=== PATIENT | female | born 1955 | race Caucasian/White ===

== ENCOUNTER 2017-05-01 06:39 | Day surgery (SDC) | payer OTHER ==
[2017-04-22 10:33] VITALS: BMI 38.4
[2017-05-01] MEDS ORDERED: MIDAZOLAM HCL 2 MG/2 ML SINGLE DOSE VIAL ONE (07:58)
--- NOTE | 2017-05-01 08:13 | HP ---
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 Cardiovascular: Yes: Hyperlipdemia Pulmonary: Yes: COPD Reproductive: Yes: Other (MENOPAUSE 2006) ...: 3 ...Para: 3 - Past Surgical History Hx Myomectomy: No Hx Transabdominal Cerclage: No Additional Surgical History: UMBLICAL ,& ABDOMINAL HERNIA REPAIR - Smoking History Smoking history: Never smoked Have you smoked in the past 12 months: No Aproximately how many cigarettes per day: 10 - Alcohol/Substance Use Hx Alcohol Use: No History of Substance Use: reports: None - Social History History of Recent Travel: No Home Medications - Allergies Allergies/Adverse Reactions: Allergies Allergy/AdvReac Type Severity Reaction Status Date / Time banana Allergy Severe Vomiting Verified 04/22/17 10:34 - Home Medications Home Medications: Ambulatory Orders Aspirin [ASA -] 81 mg PO DAILY 04/22/17 Calcium Carbonate [Calcium] 500 mg PO DAILY 04/22/17 Acetaminophen [Tylenol .Regular Strength -] 650 mg PO Q4H PRN tablet 05/01/17 Ibuprofen [Motrin -] 400 mg PO Q4H PRN tablet 05/01/17 Metronidazole 0.75% Vag. Gel [Metrogel 0.75% *Vaginal Gel* -] 1 applic VG HS #1 tube 05/01/17 Physical Exam - Maternity Vital Signs: Vital Signs Temperature 98.4 F 05/01/17 07:06 Pulse Rate 68 05/01/17 07:06 Respiratory Rate 20 05/01/17 07:06 Blood Pressure 148/72 05/01/17 07:06 O2 Sat by Pulse Oximetry (%) 97 05/01/17 07:07 Constitutional: Yes: Obese HENT: Yes: Normocephalic Neck: Yes: WNL Cardiovascular: Yes: WNL, Regular Rate and Rhythm Lungs: Clear to auscultation Breast(s): Yes: WNL - Abdominal Exam/OB Fundal Height: 4 (ut ns, mobile, firm . nontender .Adnexa parent aide, nt . 2nd degree cystocele noted,lax perineum, vagina normal ) - Vaginal Exam/OB Vaginal Bleediing: No Dilatation (cm): CLOSE - Physical Exam Musculoskeletal: Yes: WNL Extremities: Yes: WNL. No: Calf Tenderness Edema: No Integumentary: Yes: Incision (ABDOMINOPLAST SCAR , HERNIA REPAIR SCAR) Deep Tendon Reflex Grade: Normal +2 Psychiatric: Yes: WNL, Alert, Oriented - Labs Lab Results: Laboratory Tests 10/09/15 04/22/17 04/22/17 07:45 09:42 09:42 WBC 5.8 RBC 4.97 Hgb 13.9 Hct 43.0 Plt Count 239 Neutrophils % 49.9 Lymphocytes % 37.2 Monocytes % 9.0 PT with INR 11.50 INR 1.02 Sodium Potassium Chloride Carbon Dioxide BUN Creatinine Random Glucose AST ALT Urine Protein Urine Ketones Urine RBC 1 Urine WBC 4 Urine HCG, Qual 04/22/17 04/22/17 09:42 09:42 WBC RBC Hgb Hct Plt Count Neutrophils % Lymphocytes % Monocytes % PT with INR INR Sodium 140 Potassium 4.2 Chloride 105 Carbon Dioxide 29 BUN 12 Creatinine 0.8 Random Glucose 87 AST 13 L D ALT 25 Urine Protein Negative Urine Ketones Negative Urine RBC Urine WBC Urine HCG, Qual Negative Problem List - Problems (1) LGSIL (low grade squamous intraepithelial dysplasia) Code(s): PMB3480 - (2) High risk HPV infection Code(s): B97.7 - PAPILLOMAVIRUS THE CAUSE OF DISEASES CLASSIFIED ELSEWHERE (3) Post-menopause Code(s): Z78.0 - ASYMPTOMATIC MENOPAUSAL STATE Assessment/Plan PERSISITENT LGSIL ON ECC IN POSTMENOPAUSAL WOMAN PLAN COLD KNIFE CONE BX
[2017-05-01] MEDS ORDERED: PROPOFOL 20 ML ONE (08:15)
[2017-05-01] MEDS ORDERED: KETOROLAC TROMETHAMINE 30 MG/1 ML VIAL ONE (08:15)
[2017-05-01] MEDS ORDERED: DEXAMETHASONE SOD PHOSPHATE 4 MG/1 ML VIAL ONE (08:15)
[2017-05-01] MEDS ORDERED: metroNIDAZOLE 0.75% VAGINAL GEL 70 GM TUBE ONE (08:54)
[2017-05-01] MEDS ORDERED: oxyCODONE HCL 5 MG TABLET PO PRN (09:06)
[2017-05-01] MEDS ORDERED: PROMETHAZINE HCL 25 MG/1 ML VIAL IVPUSH PRN (09:06)
[2017-05-01] MEDS ORDERED: ONDANSETRON 4 MG/2 ML VIAL IVPUSH PRN (09:06)
[2017-05-01] MEDS ORDERED: DESFLURANE GAS 240 ML BOTTLE IH ONE (09:08)
[2017-05-01] MEDS ORDERED: IBUPROFEN 400 MG TABLET (FP) PO PRN (09:09)
[2017-05-01] MEDS ORDERED: ACETAMINOPHEN 325 MG TABLET (FP) PO PRN (09:09)
[2017-05-01] MEDS ORDERED: LACTATED RINGERS SOLUTION 1,000 ML IV SCH (09:15)
[2017-05-01 10:15] VITALS: TEMP 97.9
[2017-05-01 11:18] VITALS: BP 124/62; PULSE 60
--- NOTE | 2017-05-01 12:46 | OP ---
Operative Note - Note: Operative Date: 05/01/17 Pre-Operative Diagnosis: postmenopause , persistent LGSIL Operation: cold knife cone biopsy Findings: ut av ns mobile cx post no descent moderate cystocele noted local anesthesia infiltrated at 5. 7"clock & 11 & 2o'clock position cone of cx dissected hemostasis achieved Surgeon: Enid Pro Die Maker Stamping: Urszula Browne Anesthesiologist/GRAPHICS COORDINATOR: Mejia Rader Anesthesia: Local, Fractional Specimens Removed: cervical cone Estimated Blood Loss (mls): 10 (less than 10 ml ) Drains, Volume Out (mls): 50 (bladder cathetrized ) Operative Report Dictated: Yes
--- NOTE | 2017-05-02 12:56 | OP ---
DATE OF OPERATION: 05/01/2017 PREOPERATIVE DIAGNOSIS: Persistent low-grade squamous intraepithelial lesion on the cervix, human papilloma virus positive. SURGEON: Enid Pro MD TAG WRITER SURGEON: HIPOLITO Christianson ANESTHESIOLOGIST: Mejia Rader MD ANESTHESIA: Fractional and local anesthesia. FINDINGS: This is a 61-year-old, menopause in 2006, postmenopause, has abnormal Pap smears in 2011, last Pap smear was done on September 05, 2016. Pap was ASCUS with HPV of 16 positive. Colposcopy done April 05, 2017. It was satisfactory, and ECC was positive for low-grade CASEY. So, patient also had a previously ECC positive in 2016, low-grade CASEY. Due to abnormal Pap smears in 2011 and ECC always positive, it was decided to do a cold-knife cone biopsy. Incidentally, the patient is obese. DESCRIPTION OF PROCEDURE: Patient was taken to the operating room table, and IV sedation was given. She was in a lithotomy position. Pubis, perineum, vagina were painted with Betadine, draped in the usual manner. Pelvic examination was done. Uterus was anteverted, normal in size. Cervix was posterior. Adnexa was not palpable. Incidentally there was a moderate cystocele. Lax perineum and vagina. Lax vagina was noted. Then, anterior lip of the cervix was held with a single- tooth tenaculum. Lidocaine 1% was infiltrated at 5 o'clock, 7 o'clock, 11 o'clock, and 2 o'clock positions. Then, stay sutures with a Vicryl 0 suture was taken at 3 o' clock, 9 o'clock, 12 o'clock, and 6 o'clock positions. For achieving the hemostasis, 11 numbered blade was used for the dissection of the cone of ervix. Dilator was placed into the endocervical canal, and cone was dissected,starting at posterior lip of cervix and directing towards the endocervical canal and terminal end was then cut with scissors, and anterior lip was marked with a suture and sent for pathology examination. ECC was done. Then, complete hemostasis was achieved by doing a cauterization of the exposed cervix and outer edge of cut cervix.Metrogyl Gel was inserted, stay sutures were cut short. Patient tolerated the procedure well, and she was transferred to the recovery room in stable condition. Prior to starting the procedure, bladder was catheterized and 50 mL of the urine was removed. Estimated blood loss was less than 10 mL. Janis [id number] MTDD
--- NOTE | 2017-05-02 17:46 | PATH ---
Surgical Pathology Report Patient Name: TARA AVITIA [facility]. Rec. #: [id number] /Age/Gender: 1955 (Age: 61) / F Account: [id number] Location: [facility] SUR[facility]ICAL Taken: 05/01/2017 Received: 05/01/2017 Reported: 05/02/2017 Physicians: Enid Pro M.D. Specimen(s) Received A: ENDOCERVICAL CURETTINGS B: CERVICAL CONE BIOPSY STITCH CARRILLO ARTERIORLY Clinical History LGSIL Abnormal Pap since 2015-LGSIL ASCUS or LGSIL; HPV-16 Positive Colpo Bx 04/07/17; ECC-LGSIL Final Diagnosis A. ENDOCERVICAL CURETTINGS, DILATATION AND CURETTAGE: BENIGN ENDOCERVICAL TISSUE. B. CERVIX, CONE BIOPSY: LOW GRADE SQUAMOUS INTRAEPITHELIAL LESION (LSIL), FOCALLY INVOLVING QUADRANTS 3:00 TO 6:00 AND 9:00-12:00 IN A BACKGROUND OF ACUTE AND CHRONIC CERVICITIS. TRANSFORMATION ZONE IS PRESENT. SURGICAL MARGINS ARE NEGATIVE FOR DYSPLASIA. Electronically Signed Leigha Romero M.D. Gross Description A. Received in formalin labeled "endocervical curettage" is a 1.7 x 1.3 x 0.3 cm aggregate of blood-tinged mucus, possibly containing soft tissue fragments. The formalin is filtered and the specimen is entirely submitted in one cassette. B. Received in formalin labeled "cervical cone biopsy is a 1.8 cm in diameter annular portion of soft tissue, consistent with a cervical cone biopsy. There is a suture present marking the anterior aspect of the specimen, per the surgeon. The suture is presumed 12:00 and the specimen is entirely and sequentially submitted in 4 cassettes as follows: 1-12:00 to 3:00; 2-3:00 to 6:00; 3-6:00 to 9:00; 4-9:00 to 12:00. 05/01/201705/01/2017
== END 2017-05-01 11:55 | disposition home or self-care (01) ==
LOC: JASU-SURG 06:39
PROVIDERS: ATTEND Obstetrics & Gynecology
PROC: 0UDB7ZX Extraction of Endometrium, Via Natural or Artificial Opening, Diagnostic (ICD-10-PCS; 2017-05-01)
PROC: 0UBC7ZX Excision of Cervix, Via Natural or Artificial Opening, Diagnostic (ICD-10-PCS; principal; 2017-05-01 08:00)
DX: R87.612 Low grade squamous intraepithelial lesion on cytologic smear of cervix (LGSIL) (principal); R87.810 Cervical high risk human papillomavirus (HPV) DNA test positive
CPT/HCPCS: 86850; 86900; 86901; 88305-TC; 88307-TC; 94760

== ENCOUNTER 2021-04-28 18:51 | Observation (INO) | payer OTHER ==
[2021-04-28] MEDS ORDERED: LIDOCAINE 5% TOPICAL PATCH TP ONE (19:54)
[2021-04-28] MEDS ORDERED: LIDOCAINE 5% TOPICAL PATCH ONE (20:05)
[2021-04-28 20:59] LABS: BASO % 0.8 % (0-2.0); EOS % 4.4 % (0-4.5); HEMATOCRIT 40.1 % (32.4-45.2); HEMOGLOBIN 13.1 GM/dL (10.7-15.3); LYMPH % 30.6 % (8-40); MCHC 32.6 g/dl (32.0-36.0); MEAN PLT VOLUME 8.2 fl (7.5-11.1); MONO % 9.5 % (3.8-10.2); NEUT % 54.7 % (42.8-82.8); PLATELET COUNT 239 10^3/uL (134-434); RBC 4.66 M/mm3 (3.60-5.2); RDW 14.1 % (11.6-15.6); WHITE BLOOD COUNT 6.5 K/mm3 (4.0-10.0)
[2021-04-28 21:06] LABS: PROTHROMBIN TIME (PATIENT) 11.2 SEC (9.7-13.0)
[2021-04-28 21:09] LABS: ACTIVATED PTT 33.5 SECONDS (25.2-36.5)
[2021-04-28 21:18] LABS: CHLORIDE 108 mmol/L (98-107); SODIUM 142 mmol/L (136-145)
[2021-04-28 21:19] LABS: CALCIUM 8.9 mg/dL (8.5-10.1)
[2021-04-28 21:21] LABS: ALBUMIN 3.2 g/dl (3.4-5.0); ANION GAP 8 MMOL/L (8-16); BLOOD UREA NITROGEN 16.2 mg/dL (7-18); CO2 26 mmol/L (21-32); GLUCOSE,RANDOM 122 mg/dL (74-106)
[2021-04-28 21:24] LABS: CREATININE 0.8 mg/dL (0.55-1.3); SGOT/AST 19 U/L (15-37); SGPT/ALT 40 U/L (13-61)
[2021-04-28 21:25] LABS: BILIRUBIN,TOTAL 0.2 mg/dL (0.2-1); TOT PROT 6.6 g/dl (6.4-8.2)
[2021-04-28 21:27] LABS: ALK PHOS 101 U/L (45-117)
[2021-04-28] MEDS ORDERED: diazePAM CARPU-JECT 10 MG/2 ML DISP.SYRIN IVPUSH ONE (22:20)
[2021-04-28] MEDS ORDERED: diazePAM CARPU-JECT 10 MG/2 ML DISP.SYRIN ONE (22:24)
[2021-04-29] MEDS ORDERED: ASPIRIN 81 MG CHEWABLE TABLETS PO ONE (02:02)
[2021-04-29] MEDS: LIDOCAINE PATCH REMOVAL MC SCH ×2 (02:03→21:16)
[2021-04-29] MEDS ORDERED: ACETAMINOPHEN 325 MG TABLET (FP) PO PRN (02:04)
[2021-04-29] MEDS ORDERED: ASPIRIN 81 MG CHEWABLE TABLETS ONE (02:12)
[2021-04-29] MEDS ORDERED: IBUPROFEN 400 MG TABLET (FP) PO ONE (02:45)
[2021-04-29] MEDS ORDERED: GABAPENTIN 100 MG CAPSULE ONE (02:45)
[2021-04-29] MEDS: IBUPROFEN 400 MG TABLET (FP) PO SCH ×4 (02:59→17:50)
[2021-04-29] MEDS: GABAPENTIN 300 MG CAPSULE PO SCH ×2 (02:59→21:15)
[2021-04-29] MEDS: INSULIN SLIDING SCALE (NOVOLOG) 1 VIAL SQ SCH ×4 (06:12→21:16)
[2021-04-29] MEDS: LIDOCAINE 5% TOPICAL PATCH TP SCH (09:25)
[2021-04-29] MEDS: ENOXAPARIN NA (PORCINE) 40 MG/0.4 ML DISP.SYRIN SQ SCH (09:25)
[2021-04-29] MEDS: NICOTINE 14 MG/24 HOURS TOPICAL PATCH TD SCH (09:26)
[2021-04-29] MEDS: PANTOPRAZOLE 20 MG TABLET PO SCH (09:26)
[2021-04-29] MEDS: ASPIRIN 81 MG CHEWABLE TABLETS PO SCH (09:26)
[2021-04-29 12:10] LABS: HEMATOCRIT 39.1 % (32.4-45.2); MCH 28.8 pg (25.7-33.7); MCHC 33.1 g/dl (32.0-36.0); MEAN PLT VOLUME 8.9 fl (7.5-11.1); PLATELET COUNT 221 10^3/uL (134-434); RBC 4.49 M/mm3 (3.60-5.2); WHITE BLOOD COUNT 5.6 K/mm3 (4.0-10.0)
[2021-04-29 12:19] LABS: BLOOD UREA NITROGEN 12.9 mg/dL (7-18); CALCIUM 8.6 mg/dL (8.5-10.1)
[2021-04-29 12:21] LABS: MAGNESIUM 2.2 mg/dL (1.8-2.4)
[2021-04-29 12:24] LABS: CREATININE 0.8 mg/dL (0.55-1.3)
[2021-04-29 19:13] VITALS: BMI 41.8
[2021-04-29] MEDS ORDERED: ATORVASTATIN CA 20 MG TABLET (FP) PO SCH (22:00)
[2021-04-29] MEDS ORDERED: LIDOCAINE PATCH REMOVAL MC SCH (22:00)
[2021-04-30] MEDS: IBUPROFEN 400 MG TABLET (FP) PO SCH ×4 (00:23→18:36)
[2021-04-30] MEDS: INSULIN SLIDING SCALE (NOVOLOG) 1 VIAL SQ SCH ×3 (06:20→17:05)
[2021-04-30] MEDS: LIDOCAINE 5% TOPICAL PATCH TP SCH (10:53)
[2021-04-30] MEDS: NICOTINE 14 MG/24 HOURS TOPICAL PATCH TD SCH (10:53)
[2021-04-30] MEDS: ASPIRIN 81 MG CHEWABLE TABLETS PO SCH (10:53)
[2021-04-30] MEDS: PANTOPRAZOLE 20 MG TABLET PO SCH (10:53)
[2021-04-30] MEDS: ENOXAPARIN NA (PORCINE) 40 MG/0.4 ML DISP.SYRIN SQ SCH (10:53)
[2021-04-30] MEDS ORDERED: amLODIPine BESYLATE 2.5 MG TABLET (FP) PO SCH (12:45)
[2021-04-30 13:03] LABS: HEMOGLOBIN 14.1 GM/dL (10.7-15.3); MCH 28.3 pg (25.7-33.7); MCHC 32.8 g/dl (32.0-36.0); MEAN CELL VOLUME 86.5 fl (80-96); MEAN PLT VOLUME 8.7 fl (7.5-11.1); PLATELET COUNT 248 10^3/uL (134-434); RBC 4.97 M/mm3 (3.60-5.2); RDW 14.3 % (11.6-15.6); WHITE BLOOD COUNT 6.1 K/mm3 (4.0-10.0)
[2021-04-30 13:10] LABS: ALBUMIN 3.4 g/dl (3.4-5.0); BLOOD UREA NITROGEN 12.1 mg/dL (7-18); CALCIUM 9.2 mg/dL (8.5-10.1)
[2021-04-30 13:12] LABS: MAGNESIUM 2.4 mg/dL (1.8-2.4)
[2021-04-30 13:13] LABS: CREATININE 0.8 mg/dL (0.55-1.3)
[2021-04-30 13:15] LABS: BILIRUBIN,TOTAL 0.3 mg/dL (0.2-1)
[2021-04-30 13:27] LABS: URINE APPEARANCE CLEAR; URINE BILIRUBIN NEGATIVE (NEGATIVE); URINE COLOR YELLOW; URINE GLUCOSE (UA) NEGATIVE (NEGATIVE); URINE KETONE NEGATIVE (NEGATIVE); URINE LEUK ESTERASE NEGATIVE (NEGATIVE); URINE NITRITE NEGATIVE (NEGATIVE); URINE PROTEIN NEGATIVE (NEGATIVE); URINE UROBILINOGEN 0.2 mg/dL (0.2-1.0)
[2021-04-30 18:57] VITALS: BP 143/70; PULSE 66; TEMP 97.9
== END 2021-04-30 19:53 | disposition home or self-care (01) ==
LOC: JER 18:51 → JERBED 23:15 → INTOOBSV 23:15 → J5S 04-29 04:04
PROVIDERS: ATTEND Internal Medicine
PROC: 3E023GC Introduction of Other Therapeutic Substance into Muscle, Percutaneous Approach (ICD-10-PCS; principal; 2021-04-28)
PROC: 3E033NZ Introduction of Analgesics, Hypnotics, Sedatives into Peripheral Vein, Percutaneous Approach (ICD-10-PCS; 2021-04-28)
DX: R00.2 Palpitations (principal); M25.551 Pain in right hip; R73.03 Prediabetes; E66.01 Morbid (severe) obesity due to excess calories; Z68.41 Body mass index [BMI] 40.0-44.9, adult; Z72.0 Tobacco use; M54.9 Dorsalgia, unspecified; R26.2 Difficulty in walking, not elsewhere classified
CPT/HCPCS: 36415; 71045-TC-FY; 73523-TC-FY; 73700-TC-RT; 74177-TC; 80048; 80053; 81003; 82550; 82962; 83735; 84100; 84484; 85025; 85027; 85610; 85730; 93005; 93010; 93306-TC; 93970-TC; 96372; 96374; 97116-GP; 97162-GP; 99285-25; C9803; G0378; Q9967; U0003; U0005

== ENCOUNTER 2022-09-09 13:29 | Emergency (ER) | payer OTHER ==
[2022-09-09 13:38] VITALS: BP 184/79; PULSE 90; RESP 19; TEMP 97.8; BMI 42.3
[2022-09-09] MEDS ORDERED: ACETAMINOPHEN 500 MG TABLET (FP) PO ONE (15:46)
[2022-09-09] MEDS ORDERED: LIDOCAINE 5% TOPICAL PATCH TP ONE (15:46)
[2022-09-09] MEDS ORDERED: LIDOCAINE 5% TOPICAL PATCH ONE (16:01)
[2022-09-09] MEDS ORDERED: ACETAMINOPHEN INJECTION 100 ML IVPB ONE (16:01)
[2022-09-09 16:54] LABS: BASO % 0.5 % (0-2.0); EOS % 5.9 % (0-4.5); HEMATOCRIT 41.1 % (32.4-45.2); HEMOGLOBIN 13.7 GM/dL (10.7-15.3); MCH 28.4 pg (25.7-33.7); MCHC 33.3 g/dl (32.0-36.0); MEAN CELL VOLUME 85.4 fl (80-96); MEAN PLT VOLUME 9.2 fl (7.5-11.1); MONO % 7.1 % (3.8-10.2); NEUT % 57.5 % (42.8-82.8); PLATELET COUNT 260 10^3/uL (134-434); RBC 4.82 M/mm3 (3.60-5.2); RDW 14.3 % (11.6-15.6)
[2022-09-09] MEDS ORDERED: morphine CARPU-JECT 2 MG/1 ML DISP.SYRIN IVPUSH ONE (17:26)
[2022-09-09 17:36] LABS: CALCIUM 9.1 mg/dL (8.5-10.1)
[2022-09-09 17:37] LABS: ALBUMIN 3.8 g/dl (3.4-5.0); BLOOD UREA NITROGEN 10.3 mg/dL (7-18)
[2022-09-09 17:40] LABS: CREATININE 0.7 mg/dL (0.55-1.3)
[2022-09-09 17:41] LABS: BILIRUBIN,TOTAL 0.4 mg/dL (0.2-1)
[2022-09-09 17:42] LABS: TOT PROT 6.8 g/dl (6.4-8.2)
[2022-09-09] MEDS ORDERED: KETOROLAC TROMETHAMINE 15 MG/ML VIAL IVPUSH ONE (20:24)
[2022-09-09] MEDS ORDERED: KETOROLAC TROMETHAMINE 15 MG/ML VIAL ONE (20:29)
[2022-09-09] MEDS ORDERED: LIDOCAINE PATCH REMOVAL MC SCH (22:00)
== END 2022-09-09 20:43 | disposition home or self-care (01) ==
LOC: JER 13:29
PROC: 3E0333Z Introduction of Anti-inflammatory into Peripheral Vein, Percutaneous Approach (ICD-10-PCS; principal; 2022-09-09)
PROC: 3E033GC Introduction of Other Therapeutic Substance into Peripheral Vein, Percutaneous Approach (ICD-10-PCS; 2022-09-09)
DX: R59.0 Localized enlarged lymph nodes (principal); R10.12 Left upper quadrant pain; R10.11 Right upper quadrant pain; R07.89 Other chest pain; W01.0XXA Fall on same level from slipping, tripping and stumbling without subsequent striking against object, initial encounter
CPT/HCPCS: 36415; 71260-TC; 73564-TC-RT-FY; 74177-TC; 80053; 84484; 85025; 86850; 86900; 86901; 93005; 93010; 96374; 96375; 99285-25; Q9967